=== PATIENT | female | born 1995 | race Hispanic/Latino ===

== ENCOUNTER 2017-10-02 21:27 | Emergency (ER) | payer SELFPAY ==
[~2017-10-02] VITALS: Ht 165.1 cm; Wt 118.2 kg
[~2017-10-02 21:27] MED LIST: CEPHALEXIN500 MG OR; LORTAB 5 OR; NO HOME MEDS; ULTRAM50 M1 PO
[2017-10-02 22:18] LABS: HEMATOCRIT 42.6 % (37.0-47.0); HEMOGLOBIN 15.2 g/dl (12.0-16.0); IMMATURE GRANULOCYTES 0.3 % (0.0-5.0); MEAN CELL VOLUME 88.9 fL CALC (80.0-100.0); MEAN CORPUSCULAR HGB 31.7 pG CALC (26.0-32.0); MEAN CORPUSCULAR HGB CONC 35.7 g/L CALC (32.0-36.0); NEUT# 6.97 thou/uL (2.00-7.15); RED BLOOD COUNT 4.79 mill/uL (4.20-5.60); RED CELL DISTRI WIDTH 11.8 % (11.5-15.5)
[2017-10-02 22:21] LABS: URINE BILIRUBIN - DIPSTICK NEGATIVE (NEGATIVE); URINE BLOOD DIPSTICK NEGATIVE (NEGATIVE); URINE COLOR YELLOW; URINE GLUCOSE - DIPSTICK NEGATIVE (NEGATIVE); URINE KETONE NEGATIVE (NEGATIVE); URINE LEUK ESTERASE MODERATE (NEGATIVE); URINE NITRITE - DIPSTICK NEGATIVE (Negative); URINE PH 5.5 (4.5-8.0); URINE PROTEIN - DIPSTICK NEGATIVE (NEG-TRACE); URINE SPECIFIC GRAVITY 1.025; URINE UROBILINOGEN - DIPSTICK 0.2 E.U./dL (0.2)
[2017-10-02 22:22] LABS: URINE CLARITY HAZY
[2017-10-02 22:24] LABS: BARBITURATES NEGATIVE (NEGATIVE); COCAINE NEGATIVE (NEGATIVE); METHADONE NEGATIVE (NEGATIVE); OXCYCODONE NEGATIVE (NEGATIVE); TETRAHYDROCANNABIONOL NEGATIVE (NEGATIVE); TRICYLIC ANTIDEPRESSANTS NEGATIVE (NEGATIVE)
[2017-10-02 22:27] LABS: URINE BACTERIA RARE hpf; URINE SQUAMOUS EPITHELIAL CELL FEW EPI/hpf (0-FEW)
[2017-10-02 22:32] LABS: ALBUMIN 4.4 g/dL (3.2-5.0); ALKALINE PHOSPHATASE 100 u/l (38-126); ANION GAP 16 (6-22 (CALC)); BILIRUBIN, TOTAL 0.4 mg/dL (0.0-1.4); BUN 10 mg/dL (7-17); BUN/CREATININE RATIO 14 (12-20 (CALC)); CARBON DIOXIDE 23 mmol/l (22-30); CHLORIDE 109 mmol/l (95-108); CREATININE 0.7 mg/dL (0.5-1.0); GFR > 60 ML/MIN (>=60 (CALC)); GFR FOR AFR.AMER. > 60 ML/MIN (>=60 (CALC)); POTASSIUM 4.3 mmol/l (3.5-5.1); SGPT/ALT 72 u/l (9-52); SODIUM 144 mmol/l (137-146); TOTAL PROTEIN 7.7 g/dL (6.3-8.2)
[2017-10-02 22:46] LABS: SGOT/AST 37 u/l (14-36)
[2017-10-02 23:08] VITALS: BP 120/68
== END 2017-10-02 23:10 | disposition home or self-care (01) | DRG 149 ==
LOC: ED 21:27
PROVIDERS: Emergency Medicine
DX: R42 Dizziness and giddiness (principal)

== ENCOUNTER 2017-12-21 00:15 | Emergency (ER) | payer SELFPAY ==
[~2017-12-21] VITALS: Ht 165.1 cm; Wt 118.0 kg
[2017-12-21 02:30] VITALS: BP 140/94
== END 2017-12-21 02:31 | disposition home or self-care (01) | DRG 761 ==
LOC: ED 00:15
DX: N93.9 Abnormal uterine and vaginal bleeding, unspecified (principal); R50.9 Fever, unspecified

== ENCOUNTER 2019-09-07 01:48 | Observation (INO) | payer SELFPAY ==
[~2019-09-07] VITALS: Ht 165.1 cm; Wt 122.7 kg
[2019-09-07] VITALS (8 sets, daily range): BP systolic 97–121; BP diastolic 49–73
[2019-09-07 02:54] LABS: HEMATOCRIT 42.6 % (37.0-47.0); HEMOGLOBIN 14.8 g/dl (12.0-16.0); IMMATURE GRANULOCYTES 0.3 % (0.0-5.0); MEAN CELL VOLUME 89.3 fL CALC (80.0-100.0); MEAN CORPUSCULAR HGB CONC 34.7 g/dL CAL (32.0-36.0); NEUT# 19.79 thou/uL (2.00-7.15); RED BLOOD COUNT 4.77 mill/uL (4.20-5.60); RED CELL DISTRI WIDTH 11.9 % (11.5-15.5)
[2019-09-07 02:56] LABS: URINE BILIRUBIN - DIPSTICK NEGATIVE (NEGATIVE); URINE BLOOD DIPSTICK NEGATIVE (NEGATIVE); URINE COLOR YELLOW; URINE GLUCOSE - DIPSTICK NEGATIVE (NEGATIVE); URINE KETONE 40 mg/dL (NEGATIVE); URINE LEUK ESTERASE TRACE (NEGATIVE); URINE NITRITE - DIPSTICK NEGATIVE (Negative); URINE PROTEIN - DIPSTICK 30 mg/dL (NEG-TRACE); URINE SPECIFIC GRAVITY >=1.030; URINE UROBILINOGEN - DIPSTICK 0.2 E.U./dL (0.2)
[2019-09-07 03:17] LABS: ALBUMIN 4.7 g/dL (3.2-5.0); ALKALINE PHOSPHATASE 99 u/l (38-126); AMYLASE 58 u/l (30-110); ANION GAP 15 (6-22 (CALC)); BILIRUBIN, TOTAL 0.7 mg/dL (0.0-1.4); BUN 9 mg/dL (7-17); BUN/CREATININE RATIO 16 (12-20 (CALC)); CARBON DIOXIDE 24 mmol/l (22-30); CHLORIDE 102 mmol/l (95-108); CREATININE 0.6 mg/dL (0.5-1.0); GFR > 60 ML/MIN (>=60 (CALC)); GFR FOR AFR.AMER. > 60 ML/MIN (>=60 (CALC)); LIPASE 103 u/l (23-300); POTASSIUM 4.1 mmol/l (3.5-5.1); SGOT/AST 36 u/l (14-36); SODIUM 138 mmol/l (137-146); TOTAL PROTEIN 7.9 g/dL (6.3-8.2)
[2019-09-07 03:21] LABS: URINE RBC 0-2 RBC/hpf (0-5); URINE SQUAMOUS EPITHELIAL CELL FEW EPI/hpf (0-FEW)
[2019-09-07 03:22] LABS: URINE BACTERIA FEW hpf
== END 2019-09-07 16:45 | disposition home or self-care (01) | DRG 343 ==
LOC: ED 01:48 → ED-I 06:55 → ED 07:03 → ED-I 07:04 → MS2 07:04
PROVIDERS: Family Medicine; ADMIT Surgery; ATTEND Surgery
PROC: 0DTJ4ZZ Resection of Appendix, Percutaneous Endoscopic Approach (ICD-10-PCS; principal; 2019-09-07)
DX: K35.30 Acute appendicitis with localized peritonitis, without perforation or gangrene (principal); N83.201 Unspecified ovarian cyst, right side; F17.210 Nicotine dependence, cigarettes, uncomplicated; R82.71 Bacteriuria; Z20.828 Contact with and (suspected) exposure to other viral communicable diseases
CPT/HCPCS: C9290; J0131; J1100; Q9967

== ENCOUNTER 2020-08-28 16:16 | Emergency (ER) | payer SELFPAY ==
[~2020-08-28] VITALS: Ht 165.1 cm; Wt 118.0 kg
[2020-08-28 17:26] LABS: URINE BILIRUBIN - DIPSTICK NEGATIVE (NEGATIVE); URINE BLOOD DIPSTICK NEGATIVE (NEGATIVE); URINE COLOR YELLOW; URINE GLUCOSE - DIPSTICK NEGATIVE (NEGATIVE); URINE KETONE TRACE mg/dL (NEGATIVE); URINE LEUK ESTERASE SMALL (NEGATIVE); URINE NITRITE - DIPSTICK NEGATIVE (Negative); URINE PH 5.5 (4.5-8.0); URINE PROTEIN - DIPSTICK NEGATIVE (NEG-TRACE); URINE SPECIFIC GRAVITY >=1.030
[2020-08-28 17:36] LABS: URINE SQUAMOUS EPITHELIAL CELL MODERATE EPI/hpf (0-FEW)
[2020-08-28] MEDS ORDERED: PROBIOTIC FORMU1 CAP PO (18:12)
[2020-08-28] MEDS ORDERED: DOXYCYCLINE100 MG PO (18:12)
[2020-08-28 18:32] VITALS: BP 130/81
== END 2020-08-28 18:20 | disposition home or self-care (01) | DRG 760 ==
LOC: ED 16:16
DX: N89.8 Other specified noninflammatory disorders of vagina (principal); N39.0 Urinary tract infection, site not specified; B96.20 Unspecified Escherichia coli [E. coli] as the cause of diseases classified elsewhere; F17.210 Nicotine dependence, cigarettes, uncomplicated; Z20.2 Contact with and (suspected) exposure to infections with a predominantly sexual mode of transmission

== ENCOUNTER 2021-01-20 18:56 | Inpatient (IN) | payer SELFPAY ==
[~2021-01-20] VITALS: Ht 165.1 cm; Wt 121.0 kg
[~2021-01-20 18:56] MED LIST changes: +DOXYCYCLINE100 MG PO; +PROBIOTIC FORMU1 CAP PO
--- NOTE | 2021-01-20 19:40 | NUR ---
TO ROOM VIA W/C. TRIAGED AT BEDSIDE.
[2021-01-20 20:31] LABS: URINE BLOOD DIPSTICK LARGE (NEGATIVE); URINE GLUCOSE - DIPSTICK 100 mg/dL (NEGATIVE); URINE KETONE TRACE mg/dL (NEGATIVE); URINE LEUK ESTERASE TRACE (NEGATIVE); URINE PH 5.5 (4.5-8.0); URINE PROTEIN - DIPSTICK 100 mg/dL (NEG-TRACE); URINE SPECIFIC GRAVITY 1.025; URINE UROBILINOGEN - DIPSTICK >=8.0 E.U./dL (0.2)
[2021-01-20 20:34] LABS: URINE BILIRUBIN - DIPSTICK NEGATIVE (NEGATIVE); URINE COLOR AMBER; URINE NITRITE - DIPSTICK NEGATIVE (Negative)
[2021-01-20 20:38] LABS: URINE SQUAMOUS EPITHELIAL CELL MODERATE EPI/hpf (0-FEW); URINE WBC 20-50 WBC/hpf (0-5)
--- NOTE | 2021-01-20 20:40 | NUR ---
PT RESTING ON ED BED, LABS OBTAINED BY ENERGY SALES BROKER. PT STABLE.
[2021-01-20 20:49] LABS: HEMOGLOBIN 13.2 g/dl (12.0-16.0); MEAN CELL VOLUME 88.8 fL CALC (80.0-100.0); MEAN CORPUSCULAR HGB 32.3 pG CALC (26.0-32.0); MEAN CORPUSCULAR HGB CONC 36.4 g/dL CAL (32.0-36.0); PLATELET COUNT 323 thou/uL (130-400); RED BLOOD COUNT 4.09 mill/uL (4.20-5.60)
[2021-01-20 20:55] LABS: HEMATOCRIT 36.3 % (37.0-47.0); IMMATURE GRANULOCYTES 6.8 % (0.0-5.0)
[2021-01-20 20:56] LABS: MANUAL DIFFERENTIAL YES
--- NOTE | 2021-01-20 21:00 | NUR ---
PT'S IV STARTED ON SECOND ATTEMPT, PT TOLERATED WELL. PT RATES PAIN AT 9/10. PT'S BP RUNNING LOW, PT LYING SUPINE. WILL CONTINUE TO MONITOR.
[2021-01-20 21:05] LABS: TOTAL PROTEIN 6.6 g/dL (6.3-8.2)
[2021-01-20 21:07] LABS: BAND 25 % (0-8)
[2021-01-20 21:10] LABS: BILIRUBIN, TOTAL 2.4 mg/dL (0.0-1.4); CREATININE 4.9 mg/dL (0.5-1.0); POTASSIUM 2.9 mmol/l (3.5-5.1)
--- NOTE | 2021-01-20 22:00 | NUR ---
PT EDUCATED ON ORAL CONTRAST. PT REPORTS DOING BEFORE AND HAS KNOWLEDGE OF PROCESS. PT'S BP IMPROVED AND PAIN BETTER.
--- NOTE | 2021-01-20 22:10 | NUR ---
REPORT GIVEN TO RASTA MERCER FOR TRANSITION OF CARE.
--- NOTE | 2021-01-20 23:17 | NUR ---
PT RESTING. NO C/O. FINISHED PO CONTRAST. IV FLUIDS UP.
[2021-01-21] VITALS (16 sets, daily range): BP systolic 74–125; BP diastolic 36–58
--- NOTE | 2021-01-21 02:20 | NUR ---
TELEPHONE REPORT RECEIVED FROM Courtney RAINEY RN IN ED. ICU#6 PREPARED TO RECEIVE PATIENT.
--- NOTE | 2021-01-21 02:23 | NUR ---
PT RESTING. FEELING BETTER. REPORT TO RASTA ZHOU/ICU.
--- NOTE | 2021-01-21 02:37 | NUR ---
ADMISSION VALUABLES LIST COMPLETED. PT RESTING. DRINKING JUICE.
--- NOTE | 2021-01-21 03:03 | NUR ---
PT ARRIVES TO UNIT VIA WC, ACCOMPANIED BY Courtney RAINEY RN. AMBULATORY TO BATHROOM AND THEN TO BED WITHOUT DIFFICULTY. GAIT BALANCED AND STEADY.
--- NOTE | 2021-01-21 04:00 | NUR ---
PT TO FLOOR VIA W/C WITH VALUABLES.
--- NOTE | 2021-01-21 04:00 | NUR ---
PRN MORPHINE AND PHENERGAN ADMINISTERED FOR C/O ABD PAIN 09/14 AND NASUEA. SEE E-APR.
--- NOTE | 2021-01-21 04:26 | NUR ---
PT LAYING IN BED PRONE. EYES CLOSED. RESPIRATIONS REGULAR AND UNLABORED. APPEARS TO BE SLEEPING COMFORTABLY. CALL MEAD REMAINS WITHIN REACH.
--- NOTE | 2021-01-21 05:12 | NUR ---
Franca MILLER SUPERVISOR SHIPPING IN ROOM COLLECTING AM LABS.
[2021-01-21 05:35] LABS: HEMOGLOBIN 11.7 g/dl (12.0-16.0); MEAN CELL VOLUME 92.6 fL CALC (80.0-100.0); MEAN CORPUSCULAR HGB 31.9 pG CALC (26.0-32.0); MEAN CORPUSCULAR HGB CONC 34.4 g/dL CAL (32.0-36.0); NEUT# 22.45 thou/uL (2.00-7.15); RED BLOOD COUNT 3.67 mill/uL (4.20-5.60); RED CELL DISTRI WIDTH 13.7 % (11.5-15.5)
[2021-01-21 06:05] LABS: CREATININE 4.3 mg/dL (0.5-1.0); POTASSIUM 2.9 mmol/l (3.5-5.1)
[2021-01-21 06:33] LABS: IMMATURE GRANULOCYTES 8.4 % (0.0-5.0)
--- NOTE | 2021-01-21 07:03 | NUR ---
Dr Lozano present at bedside to assess pt and discuss plan of care
--- NOTE | 2021-01-21 07:10 | NUR ---
pt awake in bed; no apparent distress noted; assessment completed at this time; pt alert and oriented; admits to sharp abd pain to ruq and bilat lower quads rating 7/10; will medicate; admits to feeling much better; no n/v noted at this time; resp even and unlabored; lungs clear bilat; skin color wnl; ra; hr reg; strong pulses; no edema noted; abd soft/tender with bs present; no bm noted per bid writer; pt admits to voiding without pain or burning; no urine to inspect at this time; #20 patent to rac with ivf infusing without complication; no redness or edema noted at site; plan of care/ diet explained; US of abd pending; meds explained; call light within reach; will continue to monitor
--- NOTE | 2021-01-21 08:00 | NUR ---
awake in bed; medicated as per orders for pain and nausea; data power consultant applied d/t k-rider infusion; st on monitor; will continue to monitor
--- NOTE | 2021-01-21 08:35 | NUR ---
Dr Samayoa present at bedside to assess pt and discuss plan of care
[2021-01-21 08:39] LABS: ALBUMIN 2.4 g/dL (3.2-5.0); BILIRUBIN, TOTAL 2.2 mg/dL (0.0-1.4); DIRECT BILIRUBIN 0.6 mg/dl (0.0-0.3); TOTAL PROTEIN 5.6 g/dL (6.3-8.2)
--- NOTE | 2021-01-21 09:45 | NUR ---
pt transferred to US via wc accompanied by this automotive service writer in stable in condition
--- NOTE | 2021-01-21 10:24 | NUR ---
pt returned to unit via wc accompanied by volunteer in stable condition; pt with diarrhea while in US; pt cleansed self; another episode of diarrhea while on unint; iv flushed and patent; fluids continued; monitor worker reapplied; will continue to monitor
--- NOTE | 2021-01-21 10:58 | NUR ---
SANCHO Wilson called per this gag writer; clear liq diet to be order; SANCHO made aware of o2 sat low 80s; pt receiving morphine; o2 to be placed
--- NOTE | 2021-01-21 12:21 | NUR ---
awake in bed; offers no complaints; iv intact and patent; o2 per nc; st on monitor; call light within reach; will continue to monitor
--- NOTE | 2021-01-21 14:03 | NUR ---
awake in bed; offers no complaints; iv intact sr on monitor; call light within reach; will continue to monitor
--- NOTE | 2021-01-21 16:15 | NUR ---
up to bathroom per self; iv intact and patent; no distress noted; will continue to monitor
--- NOTE | 2021-01-21 17:15 | NUR ---
Dr Samayoa informed per this story writer of hypotension; BP 76/36; orders received and place on chart
--- NOTE | 2021-01-21 18:05 | NUR ---
awake in bed; offers no complaints; iv intact and patent; fluid bolus infusing without complication; pt remains asymtomatic in regards to hypotension; st on monitor; call light within reach
--- NOTE | 2021-01-21 18:55 | NUR ---
Dr Paulson called this hand sign writer; update provided on hypotension
--- NOTE | 2021-01-21 19:00 | NUR ---
BEDSIDE REPORT RECEIVED FROM ROSINA MAGDALENO. CARE OF PT ASSUMED AT THIS TIME. PT DENIES NEEDS CURRENTLY. CALL MEAD WITHIN REACH, AGREES TO CALL PRN.
--- NOTE | 2021-01-21 19:10 | NUR ---
R-AC 20G LEAKING, REMOVED AND DRESSED BY Jackie DELUCA RN. CATH INTACT. SITE BENIGN. NEW IV TO R-FA 22G X1 ATTEMPT INITIATED. POSITIVE BLOOD RETURN. FLUSHES EASILY.
[2021-01-22] VITALS (19 sets, daily range): BP systolic 90–117; BP diastolic 42–64
[2021-01-22 05:59] LABS: HEMATOCRIT 34.2 % (37.0-47.0); IMMATURE GRANULOCYTES 4.9 % (0.0-5.0); MEAN CELL VOLUME 91.7 fL CALC (80.0-100.0); MEAN CORPUSCULAR HGB 32.2 pG CALC (26.0-32.0); MEAN CORPUSCULAR HGB CONC 35.1 g/dL CAL (32.0-36.0); PLATELET COUNT 329 thou/uL (130-400); RED BLOOD COUNT 3.73 mill/uL (4.20-5.60); RED CELL DISTRI WIDTH 14.1 % (11.5-15.5)
[2021-01-22 06:13] LABS: POTASSIUM 3.3 mmol/l (3.5-5.1)
[2021-01-22 06:15] LABS: CREATININE 2.4 mg/dL (0.5-1.0)
[2021-01-22 06:23] LABS: MANUAL DIFFERENTIAL YES
[2021-01-22 06:46] LABS: BAND 3 % (0-8)
--- NOTE | 2021-01-22 07:20 | NUR ---
pt awake in bed; no apparent distress noted; assessment completed at this time; pt alert and oriented; admits to abd pain radiating to back rating 9/10; denies n/v; will medicate; resp even and unlabored; lungs clear bilat; skin color wnl; o2 per nc at 2L; o2 sat 91%; hr reg; strong pulses; no edema noted; st on monitor; abd soft with bs present; pt admits to bm, dark brown diarrhea noted in toilet; pt admits to voiding without pain or burning; urine mixed with stool; #22 patent to rfa with ivf infusing without complication; no redness or edema noted at site; plan of care/ meds explained; call light within reach; will continue to monitor
--- NOTE | 2021-01-22 08:01 | NUR ---
resting in bed on left side with eyes closed; no apparent distress noted; st on monitor; iv intact and patent; call light within reach; will continue to monitor
--- NOTE | 2021-01-22 09:00 | NUR ---
Dr Paulson present at bedside to assess pt and discuss plan of care
--- NOTE | 2021-01-22 09:33 | NUR ---
xray present at bedside
--- NOTE | 2021-01-22 09:50 | NUR ---
lab present at bedside
--- NOTE | 2021-01-22 10:20 | NUR ---
resting in bed; st on monitor; o2 per nc; offers no complaints; poc explained; call light within reach; will continue to monitor
--- NOTE | 2021-01-22 11:00 | NUR ---
Dr Paulson informed of lactic acid and xray results; orders received to continue with liter bolus; will continue to monitor
--- NOTE | 2021-01-22 12:00 | NUR ---
Dr Lozano present at bedside to assess pt and discuss plan of care/ need for cholecystectomy today; pt agree with surgery; MD informed of last clear liq intake at approx 1000; pt st on monitor; iv intact and patent; call light within reach; will continue to monitor
--- NOTE | 2021-01-22 13:05 | NUR ---
PT IS 25 YOF WHO PRESENTS WITH SEPSIS. ALL MEDS HAVE BEEN REVIEWED. T = 98.2 F, WBC = 37.1 THOUS/UL, SCR = 2.4 MG/DL, CRCL = 46.7 ML/MIN VANCOMYCIN ORDERED FOR PHARMACY TO DOSE. START VANCOMYCIN 500MG IV Q12H @ 1230. DRAW TROUGH 30 MIN PRIOR TO 4TH DOSE ON 12 @ 0000. GOAL TROUGH IS 15-20 MCG/ML. PHARMACY WILL CONTINUE TO FOLLOW.
--- NOTE | 2021-01-22 13:10 | NUR ---
pt transferred to OR with Bhumika in stable condition
--- NOTE | 2021-01-22 16:15 | NUR ---
pt received back from ORT via bed accompanied by Bhumika RN and Tiki RN; pt in stable condition; focus assessment completed; pt fully awake and oriented; denies pain at current; no n/v noted; resp even and unlabored; lungs clear; o2 per nc at 4L; hr reg; st on monitor; bilat scds placed; abd tender with bs absent; ngt present to right nare, connected to LIS; #20 rh patent with ivf infusing without complication; no redness or edema noted at site; abd dressing cdi; no bleeding/shadowing to drsg noted; CARLOS intact to ruq with bloody drainage to bulb suction; abd binder secured; pt assist to bsc; voided 350cc dk yellow urine without complication; few ice chips provided; call light within reach; will continue to monitor
--- NOTE | 2021-01-22 18:17 | NUR ---
awake in bed; offers no complaints; denies pain; st on monitor; iv intact and patent; ice chips provided; call light within reach;
--- NOTE | 2021-01-22 18:55 | NUR ---
IS provided; pt educated on use per RT;
--- NOTE | 2021-01-22 19:00 | NUR ---
BEDSIDE REPORT RECEIVED FROM ROSINA MAGDALENO. CARE OF PT ASSUMED AT THIS TIME. PT DENIES NEEDS CURRENTLY. CALL MEAD WITHIN REACH, AGREES TO CALL PRN.
--- NOTE | 2021-01-22 19:13 | NUR ---
NGT OUT, PT DECLINES RE-INSERTION. RISKS DISCUSSED AT LENGTH. PT VERBALIZES UNDERSTANDING AND CONTINUES TO DECLINE. DR. COLBERT MADE AWARE. NO FURTHER ORDERS RECEIVED AT THIS TIME.
--- NOTE | 2021-01-22 19:45 | NUR ---
DR. DURON MADE AWARE OF NGT OUT/PT'S REFUSAL FOR RE-INSERTION. ORDER FOR NON-OPIATE ALTERNATIVE ANALGESIC OPTION OBTAINED AT THIS TIME.
[2021-01-23] VITALS (17 sets, daily range): BP systolic 89–155; BP diastolic 45–88
--- NOTE | 2021-01-23 03:03 | NUR ---
120ML SANGUINOUS OUTPUT WITH SOME CLOTS DRAINED FROM CARLOS. BULB SUCTION RE-ENGAGED.
--- NOTE | 2021-01-23 04:34 | NUR ---
Franca MILLER FOOD SCIENCE TECHNICIAN IN ROOM COLLECTING LABS.
--- NOTE | 2021-01-23 05:05 | NUR ---
50ML SANGUINOUS OUTPUT WITH SOME CLOTS DRAINED FROM CARLOS. BULB SUCTION RE-ENGAGED. 600ML IMELDA URINE MIXED WITH LIQUID STOOL EMPTIED FROM BSC. PT TOLERATING ICE CHIPS AND REQUESTING DIET BE ADVANCED TO LIQUIDS THIS AM.
[2021-01-23 05:14] LABS: HEMATOCRIT 31.1 % (37.0-47.0); HEMOGLOBIN 10.2 g/dl (12.0-16.0); IMMATURE GRANULOCYTES 5.7 % (0.0-5.0); MEAN CORPUSCULAR HGB 32.1 pG CALC (26.0-32.0); MEAN CORPUSCULAR HGB CONC 32.8 g/dL CAL (32.0-36.0); NEUT# 21.47 thou/uL (2.00-7.15); RED BLOOD COUNT 3.18 mill/uL (4.20-5.60); RED CELL DISTRI WIDTH 15.3 % (11.5-15.5)
[2021-01-23 05:27] LABS: ANION GAP 13 (6-22 (CALC)); BUN 27 mg/dL (7-17); BUN/CREATININE RATIO 23 (12-20 (CALC)); CARBON DIOXIDE 19 mmol/l (22-30); CHLORIDE 111 mmol/l (95-108); GFR 55 ML/MIN (>=60 (CALC)); POTASSIUM 3.6 mmol/l (3.5-5.1); SODIUM 140 mmol/l (137-146)
[2021-01-23 05:28] LABS: CREATININE 1.2 mg/dL (0.5-1.0); GFR FOR AFR.AMER. > 60 ML/MIN (>=60 (CALC))
[2021-01-23 05:38] LABS: MEAN CELL VOLUME 97.8 fL CALC (80.0-100.0)
--- NOTE | 2021-01-23 07:20 | NUR ---
pt awake in bed; no apparent distress noted; assessment completed at this time; pt alert and oriented; offers complaints of pain; will medicate; denies n/v; resp even and unlabored; lungs clear; skin color wnl; o2 per nc at 2L; dry cough noted; IS present at bedside; pt able to pull 1000ml; IS encouraged q1 hr x10 resp while aware; hr reg; strong pulses; no edema noted; sr/st on monitor; abd distended/obese; bs present to llq; small liquid brown bm noted to bsc; no urine to inspect at this time; #20 patent to rh, ivf infusing without complication; no redness or edema noted at site; pt remains npo, ice chips provided; abd dressing cdi, scant dry shadowing noted to distal dressing; CARLOS to aide intact with bloody drainage to bulb suction; abd binder intact; pt up to recliner; tolerated activity well; call light within reach; will continue to monitor
--- NOTE | 2021-01-23 08:01 | NUR ---
resting in recliner with eyes closed; no apparent distress noted; o2 per nc; sr on monitor; call light within reach; will continue to monitor
--- NOTE | 2021-01-23 09:55 | NUR ---
awake in recliner; offers no complaints; no apparent distress noted; po fluids provided and tolerated well; iv intact and patent; sr on monitor; call light within reach; will continue to monitor
--- NOTE | 2021-01-23 10:09 | NUR ---
visitor present at bedside
--- NOTE | 2021-01-23 10:35 | NUR ---
pt with complaints of pain to right abd rating 7/10, sharp; will medicate; pt requesting back to bed; iv intact; st on monitor; o2 intact; iv patent; will continue to monitor
--- NOTE | 2021-01-23 12:00 | NUR ---
awake sitting on the side of the bed eating lunch; no apparent distress noted; iv intact and patent; sr/st on monitor; o2 per nc; IS at bedside and pt encouraged to use q 1hr; will continue to monitor
--- NOTE | 2021-01-23 12:10 | NUR ---
Dr Lozano called this narrative writer; updated on pt status/vs/noé outpt; no needs required from this nurse or pt at this time; pt tolerating diet; will continue to monitor
--- NOTE | 2021-01-23 14:13 | NUR ---
awake in bed; offers no complaints; st on monitor; will continue to monitor
--- NOTE | 2021-01-23 15:59 | NUR ---
awake in bed; up to recliner per self; pt admits to abd pain; will be medicated as per request; sr on monitor; o2 per nc; iv intact and patent; noé emptied; call light within reach; will continue to monitor
--- NOTE | 2021-01-23 18:07 | NUR ---
awake in recliner eating dinner; offers no complaints; iv intact and patent; o2 per nc; call light within reach
--- NOTE | 2021-01-23 18:45 | NUR ---
BEDSIDE REPORT RECEIVED FROM Jackie DELUCA RN, CARE OF PT ASSUMED AT THIS TIME.
[2021-01-24] VITALS (9 sets, daily range): BP systolic 103–139; BP diastolic 53–76
--- NOTE | 2021-01-24 04:15 | NUR ---
Franca MILLER PATROL INSPECTOR IN ROOM COLLECTING LABS.
[2021-01-24 04:23] LABS: HEMATOCRIT 31.8 % (37.0-47.0); HEMOGLOBIN 10.4 g/dl (12.0-16.0); MEAN CELL VOLUME 97.8 fL CALC (80.0-100.0); MEAN CORPUSCULAR HGB CONC 32.7 g/dL CAL (32.0-36.0); NEUT# 14.18 thou/uL (2.00-7.15); RED BLOOD COUNT 3.25 mill/uL (4.20-5.60)
--- NOTE | 2021-01-24 04:28 | NUR ---
PT REQUESTS BED BE MOVED CLOSER TO WALL OUTLET SO HER PHONE COOK STARCH COULD REACH, BED MOVED REQUESTED. WATER BOTTLE PROVIDED REQUESTED. PT STATES SHE IS HAVING INDIGESTION/ACID REFLUX. STATES "I THINK ALL THAT ORANGE JUICE IS FINALLY CATCHING UP TO ME." PT THEN WHISPERS "DID YOU HEAR THAT?", WHEN QUESTIONED STATES SHE HEARS SOMEONE OUTSIDE HER ROOM "HAVING SEX". PT REASSURED THEIR ARE NO OTHER PATIENTS AROUND HER ROOM AND NO ONE ELSE IN ICU BUT PATIENT AND NURSES.
[2021-01-24 04:29] LABS: IMMATURE GRANULOCYTES 11.7 % (0.0-5.0)
[2021-01-24 04:54] LABS: ALBUMIN 2.1 g/dL (3.2-5.0); ALKALINE PHOSPHATASE 249 u/l (38-126); ANION GAP 11 (6-22 (CALC)); BUN 20 mg/dL (7-17); BUN/CREATININE RATIO 20 (12-20 (CALC)); CARBON DIOXIDE 19 mmol/l (22-30); CHLORIDE 110 mmol/l (95-108); GFR > 60 ML/MIN (>=60 (CALC)); GFR FOR AFR.AMER. > 60 ML/MIN (>=60 (CALC)); POTASSIUM 4.1 mmol/l (3.5-5.1); SGOT/AST 45 u/l (14-36); SODIUM 136 mmol/l (137-146); TOTAL PROTEIN 5.5 g/dL (6.3-8.2)
[2021-01-24 04:56] LABS: BILIRUBIN, TOTAL 1.1 mg/dL (0.0-1.4)
--- NOTE | 2021-01-24 05:40 | NUR ---
60ML SANGUINOUS OUTPUT WITH SOME CLOTS DRAINED FROM CARLOS. BULB SUCTION RE-ENGAGED. 200ML IMELDA URINE MIXED WITH LIQUID STOOL EMPTIED FROM BSC. PT DENIES FURTHER NEEDS AT THIS TIME. CALL MEAD REMAINS WITHIN REACH,AGREES TO CALL PRN.
--- NOTE | 2021-01-24 07:25 | NUR ---
RESTING IN BED CHEST RISING AND FALLING.
--- NOTE | 2021-01-24 09:37 | NUR ---
DR STRICKLAND IN ROUNDING ON PT.
--- NOTE | 2021-01-24 09:44 | NUR ---
DR MARCIAL IN ROUNDING ON PT.
--- NOTE | 2021-01-24 15:24 | NUR ---
RESTING IN BED. NO S/S OF DISTRESS NOTED.
--- NOTE | 2021-01-24 19:00 | NUR ---
BEDSIDE REPORT RECEIVED FROM Franca HUFF RN, CARE OF PT ASSUMED AT THIS TIME.
--- NOTE | 2021-01-24 19:24 | NUR ---
100ML SANGUINOUS OUTPUT WITH SOME CLOTS DRAINED FROM CARLOS. BULB SUCTION RE-ENGAGED. CARLOS DRAIN SECURE, UNKINKED, AND UNOBSTRUCTED.
--- NOTE | 2021-01-24 19:39 | NUR ---
TELEPHONE REPORT GIVEN TO Franca SLOAN RN.
--- NOTE | 2021-01-24 19:45 | NUR ---
REPORT RECEIVED FROM Francis CÁRDENAS.
--- NOTE | 2021-01-24 19:54 | NUR ---
PT TRANSPORTED TO ROOM 276 VIA WC ACCOMPANIED BY THIS NURSE AND Chace TOUSSAINT CNA.
--- NOTE | 2021-01-24 20:00 | NUR ---
PT ARRIVED TO FLOOR VIA WHEELCHAIR ACCOMPANIED BY Francis CÁRDENAS
[2021-01-25 00:48] VITALS: BP 116/74
[2021-01-25 04:25] VITALS: BP 141/61
[2021-01-25 05:19] LABS: HEMATOCRIT 29.6 % (37.0-47.0); HEMOGLOBIN 9.7 g/dl (12.0-16.0); MEAN CORPUSCULAR HGB 32.1 pG CALC (26.0-32.0); MEAN CORPUSCULAR HGB CONC 32.8 g/dL CAL (32.0-36.0); RED BLOOD COUNT 3.02 mill/uL (4.20-5.60); RED CELL DISTRI WIDTH 14.3 % (11.5-15.5)
[2021-01-25 05:30] LABS: BUN 17 mg/dL (7-17); BUN/CREATININE RATIO 21 (12-20 (CALC)); CHLORIDE 106 mmol/l (95-108); CREATININE 0.8 mg/dL (0.5-1.0); GFR > 60 ML/MIN (>=60 (CALC)); GFR FOR AFR.AMER. > 60 ML/MIN (>=60 (CALC)); POTASSIUM 3.6 mmol/l (3.5-5.1); SODIUM 135 mmol/l (137-146)
[2021-01-25 05:37] LABS: ANION GAP 10 (6-22 (CALC)); CARBON DIOXIDE 23 mmol/l (22-30)
--- NOTE | 2021-01-25 06:02 | NUR ---
PT RESTING COMFORTABLY. IN NO APPARENT DISTRESS. CALL LIGHT AND BEDSIDE TABLE WITHIN REACH.
--- NOTE | 2021-01-25 06:12 | NUR ---
CRITICAL MAGNESIUM OF 1.O REPORTED TO DR WEBER ORDER RECEIVED FOR 4GM MG IV X 1.
[2021-01-25 08:00] VITALS: BP 129/73
--- NOTE | 2021-01-25 09:19 | NUR ---
PT SEEN AT REST IN THE BED, IS ALERT AND ORIENTED X 3. PT WAS MEDICATED FOR PAIN SHORT WHILE AGO, BUT SHE DOES NOT PRESENT IF IN GREAT PAIN. CARLOS NOTED. PT PROVIDED GATORADE SHE SAID THE ORANGE JUICE WAS UPSETTING HER STOMACH.
--- NOTE | 2021-01-25 14:03 | NUR ---
PT SEEN BE DR MARCIAL AND JORDANA THIS MORNING. DEBBI RAMON. CARLOS DRAINS WAS DISCONTINUED WITHOUT INCIDENT. ABDOMINAL DRESSING REMOVED, LEFT DOCUMENTATION MANAGER.
[2021-01-25 14:45] VITALS: BP 135/61
--- NOTE | 2021-01-25 18:06 | NUR ---
ABD PLACED OVER CARLOS SITE PER MODERATE DRAINAGE. PT WISHES THAT SHE STILL HAD DILAUDID FOR PAIN CONTROL. PT AMBULATORY TO BR WITHOUT A PROBLEM.
--- NOTE | 2021-01-25 18:50 | NUR ---
REPORT RECEIEVED FROM Dima DAVILA RN
[2021-01-25 19:00] VITALS: BP 137/75
--- NOTE | 2021-01-25 21:14 | NUR ---
PT COMPLAINING OF NAUSEA, STATES HE VOMITED IN HER WATER PITCHER. VISUALLY INSPECTED WATER PITCHER, NO VOMIT NOPTED ONLY SPIT.
--- NOTE | 2021-01-25 21:18 | NUR ---
PT REQUESTING SOMENTHING "HARDER" TO GET RID OF HER PAIN AND LET HER SLEEP. PT DOES NOT APPEAR TO BE IN ANY DISTRESS AT THIS TIME. INFORMED PT SHE COULD HAVE LORETAB, BUT DECLINES SHE WANTS DILAUDID. NOTIDFIED DR OF PT REQUEST. NO NEW ORDERS RECEIVED
[2021-01-26 04:00] VITALS: BP 147/65
[2021-01-26 05:29] LABS: HEMATOCRIT 30.4 % (37.0-47.0); MEAN CELL VOLUME 98.4 fL CALC (80.0-100.0); MEAN CORPUSCULAR HGB 32.4 pG CALC (26.0-32.0); MEAN CORPUSCULAR HGB CONC 32.9 g/dL CAL (32.0-36.0); RED BLOOD COUNT 3.09 mill/uL (4.20-5.60); RED CELL DISTRI WIDTH 13.6 % (11.5-15.5)
[2021-01-26 05:50] LABS: ANION GAP 11 (6-22 (CALC)); BUN 11 mg/dL (7-17); BUN/CREATININE RATIO 17 (12-20 (CALC)); CARBON DIOXIDE 23 mmol/l (22-30); CHLORIDE 103 mmol/l (95-108); CREATININE 0.6 mg/dL (0.5-1.0); GFR > 60 ML/MIN (>=60 (CALC)); GFR FOR AFR.AMER. > 60 ML/MIN (>=60 (CALC)); POTASSIUM 3.5 mmol/l (3.5-5.1); SODIUM 133 mmol/l (137-146)
[2021-01-26 05:53] LABS: MAGNESIUM 1.4 mg/dL (1.6-2.3)
--- NOTE | 2021-01-26 06:28 | NUR ---
PATIENT STATES HER IV "FELL OUT DURING THE NIGHT" PT DEOES NOT WANT TO BE STUCK AGAIN SHE STATES SHE WILL BE GOING HOME TONIGHT.DR MARCIAL NOTIFIED, PT HAS ANTIBIOTIC DUE AT THIS TIME BUT IS REFUSING. DR ORDONEZ
[2021-01-26 08:34] VITALS: BP 154/76
--- NOTE | 2021-01-26 10:34 | NUR ---
DR MARCIAL AND Dima MCKEE APRN AT BEDSIDE DISCUSSING POC
--- NOTE | 2021-01-26 10:43 | NUR ---
DRESSING CHANGE COMPLETED AT THIS TIME BY THIS COMMUNICATIONS TECH FROM CARLOS REMOVAL SITE; SHADOWING OF SEROSANGUINEOUS DRAINAGE NOTED. PT TOLERATED WELL. CALL LIGHT WITHIN REACH.
[2021-01-26] MEDS ORDERED: PERCOCET 5/321 COMBO PO (11:23)
[2021-01-26] MEDS ORDERED: ZOFRAN4 MG/TAB PO (11:26)
--- NOTE | 2021-01-26 12:12 | NUR ---
Discharge instructions given. Patient verbalizes understanding of same. Discharged in stable condition via Wheelchair to Home with staff. All belongings sent with pt along with pain medication prescription; copy placed on chart.
[2021-02-01] MEDS ORDERED: OMEPRAZOLE20 MG PO (12:23)
== END 2021-01-26 12:11 | disposition home or self-care (01) | DRG 854 ==
LOC: ED 18:56 → ED-I 01-21 01:10 → ED 01-21 01:23 → ICU 01-21 01:24 → MS2 01-24 19:45
PROVIDERS: Family Medicine; Hospitalist; Internal Medicine; Nurse Practitioner; Surgery; ADMIT Internal Medicine; ATTEND Internal Medicine
PROC: 0FT40ZZ Resection of Gallbladder, Open Approach (ICD-10-PCS; principal; 2021-01-22)
PROC: 0FJ44ZZ Inspection of Gallbladder, Percutaneous Endoscopic Approach (ICD-10-PCS; 2021-01-22)
DX: A41.9 Sepsis, unspecified organism (principal); K80.01 Calculus of gallbladder with acute cholecystitis with obstruction; N17.9 Acute kidney failure, unspecified; E87.2 Acidosis; R65.20 Severe sepsis without septic shock; E86.0 Dehydration; I95.9 Hypotension, unspecified; E87.6 Hypokalemia; N83.201 Unspecified ovarian cyst, right side; M54.9 Dorsalgia, unspecified; G89.29 Other chronic pain; F17.200 Nicotine dependence, unspecified, uncomplicated; Z20.822 Contact with and (suspected) exposure to COVID-19
CPT/HCPCS: J0131; J1610; J1650; J3475; Q9967

== ENCOUNTER 2021-02-03 10:06 | Emergency (ER) | payer SELFPAY ==
[~2021-02-03] VITALS: Ht 165.1 cm; Wt 117.2 kg
[~2021-02-03 10:06] MED LIST changes: +OMEPRAZOLE20 MG PO; +PERCOCET 5/321 COMBO PO; +ZOFRAN4 MG/TAB PO
[2021-02-03] MEDS ORDERED: PERCOCET 5/325M1 TAB PO (10:22)
[2021-02-03] MEDS ORDERED: ZOFRAN4 M1 PO (10:22)
[2021-02-03 11:14] LABS: HEMATOCRIT 33.8 % (37.0-47.0); HEMOGLOBIN 10.8 g/dl (12.0-16.0); MEAN CELL VOLUME 98.3 fL CALC (80.0-100.0); MEAN CORPUSCULAR HGB 31.4 pG CALC (26.0-32.0); NEUT# 9.89 thou/uL (2.00-7.15); RED BLOOD COUNT 3.44 mill/uL (4.20-5.60); RED CELL DISTRI WIDTH 14.3 % (11.5-15.5)
[2021-02-03 11:34] LABS: IMMATURE GRANULOCYTES 8.3 % (0.0-5.0)
[2021-02-03 11:41] LABS: BILIRUBIN, TOTAL 0.8 mg/dL (0.0-1.4); POTASSIUM 3.6 mmol/l (3.5-5.1); TOTAL PROTEIN 6.4 g/dL (6.3-8.2)
[2021-02-03 11:46] LABS: ALBUMIN 2.6 g/dL (3.2-5.0)
[2021-02-03 11:49] LABS: CREATININE 4.9 mg/dL (0.5-1.0)
[2021-02-03 16:19] VITALS: BP 94/53
[2021-02-03 16:22] LABS: URINE BILIRUBIN - DIPSTICK NEGATIVE (NEGATIVE); URINE BLOOD DIPSTICK MODERATE (NEGATIVE); URINE COLOR YELLOW; URINE GLUCOSE - DIPSTICK NEGATIVE (NEGATIVE); URINE KETONE TRACE mg/dL (NEGATIVE); URINE LEUK ESTERASE TRACE (NEGATIVE); URINE PH 5.5 (4.5-8.0); URINE PROTEIN - DIPSTICK 100 mg/dL (NEG-TRACE); URINE UROBILINOGEN - DIPSTICK 0.2 E.U./dL (0.2)
[2021-02-03 16:24] LABS: URINE NITRITE - DIPSTICK NEGATIVE (Negative)
[2021-02-03 16:31] LABS: URINE MUCUS FEW hpf (NONE-FEW); URINE SQUAMOUS EPITHELIAL CELL FEW EPI/hpf (0-FEW); URINE WBC 0-2 WBC/hpf (0-5)
--- NOTE | 2021-02-05 10:29 | NUR ---
Results of Blood cultures, 4/4 bottles growing Gram Positive cocci called to Emmett at [facility] ICU on 02/06/20 @ 0889 @ [phone].
== END 2021-02-03 16:33 | disposition short-term general hospital (02) | DRG 862 ==
LOC: ED 10:06
PROVIDERS: Family Medicine
PROC: 06HY33Z Insertion of Infusion Device into Lower Vein, Percutaneous Approach (ICD-10-PCS; principal; 2021-02-03)
DX: T81.43XA Infection following a procedure, organ and space surgical site, initial encounter (principal); K65.1 Peritoneal abscess; A41.9 Sepsis, unspecified organism; R65.21 Severe sepsis with septic shock; F17.200 Nicotine dependence, unspecified, uncomplicated; B95.0 Streptococcus, group A, as the cause of diseases classified elsewhere; Y83.6 Removal of other organ (partial) (total) as the cause of abnormal reaction of the patient, or of later complication, without mention of misadventure at the time of the procedure; Z90.49 Acquired absence of other specified parts of digestive tract; Z20.822 Contact with and (suspected) exposure to COVID-19

== ENCOUNTER 2021-04-18 10:06 | Observation (INO) | payer OTHER ==
[~2021-04-18] VITALS: Ht 165.1 cm; Wt 150.0 kg
[~2021-04-18 10:06] MED LIST changes: +PERCOCET 5/325M1 TAB PO; +ZOFRAN4 M1 PO
--- NOTE | 2021-04-18 10:06 | NUR ---
PT ARRIVES ALERT AND CONVERSIVE VIA EMS, NO TACHYPNEA. O2 SAT 96% ON RA
[2021-04-18] MEDS ORDERED: METOPROL TAR25 MG PO (10:27)
[2021-04-18] MEDS ORDERED: FAMOTIDINE20 M1 PO (10:28)
[2021-04-18] MEDS ORDERED: VIMPAT100 MG PO (10:28)
[2021-04-18] MEDS ORDERED: FLUOXETINE10 M2 PO (10:28)
[2021-04-18] MEDS ORDERED: ELIQUIS5 MG PO (10:29)
[2021-04-18 10:39] LABS: HEMATOCRIT 31.1 % (37.0-47.0); IMMATURE GRANULOCYTES 0.6 % (0.0-5.0); MEAN CELL VOLUME 94.5 fL CALC (80.0-100.0); MEAN CORPUSCULAR HGB 30.4 pG CALC (26.0-32.0); MEAN CORPUSCULAR HGB CONC 32.2 g/dL CAL (32.0-36.0); NEUT# 12.2 thou/uL (2.00-7.15); RED BLOOD COUNT 3.29 mill/uL (4.20-5.60); RED CELL DISTRI WIDTH 17.8 % (11.5-15.5)
[2021-04-18 10:53] LABS: D-DIMER 1.23 mg/L (0.19-0.60)
[2021-04-18 10:56] LABS: ACT PARTIAL THROMBO TIME 21.1 SECONDS (20.0-32.5); INTERNATIONAL NORMALIZED RATIO 1.1 RATIO (0.7-1.3)
[2021-04-18 11:08] LABS: URINE BILIRUBIN - DIPSTICK NEGATIVE (NEGATIVE); URINE BLOOD DIPSTICK LARGE (NEGATIVE); URINE COLOR YELLOW; URINE GLUCOSE - DIPSTICK NEGATIVE (NEGATIVE); URINE KETONE NEGATIVE (NEGATIVE); URINE LEUK ESTERASE NEGATIVE (NEGATIVE); URINE PH 7.5 (4.5-8.0); URINE PROTEIN - DIPSTICK 30 mg/dL (NEG-TRACE); URINE UROBILINOGEN - DIPSTICK 0.2 E.U./dL (0.2)
[2021-04-18 11:09] LABS: HCG SERUM/URINE (NEG/POS) NEGATIVE (NEGATIVE); URINE NITRITE - DIPSTICK NEGATIVE (Negative)
[2021-04-18 11:15] LABS: URINE RBC 25-50 RBC/hpf (0-5); URINE SQUAMOUS EPITHELIAL CELL FEW EPI/hpf (0-FEW); URINE WBC 0-2 WBC/hpf (0-5)
[2021-04-18 11:32] LABS: ALKALINE PHOSPHATASE 136 u/l (38-126); AMYLASE 92 u/l (30-110); BILIRUBIN, TOTAL 0.6 mg/dL (0.0-1.4); BUN 17 mg/dL (7-17); CHLORIDE 108 mmol/l (95-108); LIPASE 276 u/l (23-300); MAGNESIUM 1.7 mg/dL (1.6-2.3); SGOT/AST 59 u/l (14-36)
[2021-04-18 11:41] LABS: ALBUMIN 3.9 g/dL (3.2-5.0); ANION GAP 17 (6-22 (CALC)); BUN/CREATININE RATIO 24 (12-20 (CALC)); CARBON DIOXIDE 24 mmol/l (22-30); CREATININE 0.7 mg/dL (0.5-1.0); GFR > 60 ML/MIN (>=60 (CALC)); GFR FOR AFR.AMER. > 60 ML/MIN (>=60 (CALC)); POTASSIUM 2.6 mmol/l (3.5-5.1); SODIUM 146 mmol/l (137-146); TOTAL PROTEIN 7.8 g/dL (6.3-8.2)
[2021-04-18 14:32] VITALS: BP 181/99
--- NOTE | 2021-04-18 15:13 | NUR ---
REPORT RECIEVED FROM RASTA ROBERTS
--- NOTE | 2021-04-18 15:16 | NUR ---
REPORT CALLED TO [facility] FOR TRANSPORT TO ROOM 277 VIA WHEELCHAIR.
--- NOTE | 2021-04-18 15:23 | NUR ---
PT ARRIVED VIA WC WITH RASTA GAY. ORIENTATED PT TO ROOM. PT ABLE TO AMBULATE SELF TO BED. ASSESSMENT AND VITALS ALLOWED AT THIS TIME. BRUISING ON LEFT UPPER LEG. EDEMA ON LOWER FEET +2-3. THE LEFT LEG IS +3. PT STATES "THEY FEEL LIKE THEYRE BURINING." TELE MONITOR IN PLACE. CONTINOUS MONITORING PER ED. FALL/SAFTEY PRECAUTIONS IN PLACE. CALL LIGHT IS WITHIN REACH.
[2021-04-18 16:15] VITALS: BP 194/92
[2021-04-18 18:06] VITALS: BP 166/92
--- NOTE | 2021-04-18 18:32 | NUR ---
PT RESTING SEMI CHILDERS POSTION ON PHONE. IV 20G RAC SL FLUSHED WITH NO RESISTANCE. TELE MONITOR IN PLACE. STATES NO PAIN AT THIS TIME. FALL/SAFETY PRECAUTION IN PLACE. CALL LIGHT WITHIN REACH
[2021-04-18 20:09] VITALS: BP 140/74
--- NOTE | 2021-04-18 20:50 | NUR ---
RESTING IN BED VSS RESPIRATIONS EVEN AND UNLABORED. BLE EDEMA NOTED. ;EFT WORSE THAN RIGHT. NO NEEDS AT THIS TIME.
[2021-04-19 00:03] VITALS: BP 160/81
--- NOTE | 2021-04-19 00:46 | NUR ---
MEDICATED RO FOOT DISCOMFORT PER APR. VSS RESTING IN BED EYES CLOSED
--- NOTE | 2021-04-19 03:57 | NUR ---
PT DID NOT SLEEP OVERNIGHT. NO EVENTS THIS SHIFT. VSS Q2 HR ROUNDING PERFORMED PER POLICY
[2021-04-19 04:19] VITALS: BP 164/85
[2021-04-19 05:49] LABS: HEMATOCRIT 29.2 % (37.0-47.0); HEMOGLOBIN 9.4 g/dl (12.0-16.0); MEAN CELL VOLUME 94.8 fL CALC (80.0-100.0); MEAN CORPUSCULAR HGB 30.5 pG CALC (26.0-32.0); MEAN CORPUSCULAR HGB CONC 32.2 g/dL CAL (32.0-36.0); RED BLOOD COUNT 3.08 mill/uL (4.20-5.60); RED CELL DISTRI WIDTH 17.7 % (11.5-15.5)
[2021-04-19 06:15] LABS: BUN 16 mg/dL (7-17); BUN/CREATININE RATIO 25 (12-20 (CALC)); CARBON DIOXIDE 27 mmol/l (22-30); CHLORIDE 104 mmol/l (95-108); CREATININE 0.6 mg/dL (0.5-1.0); GFR > 60 ML/MIN (>=60 (CALC)); GFR FOR AFR.AMER. > 60 ML/MIN (>=60 (CALC)); MAGNESIUM 1.7 mg/dL (1.6-2.3); SODIUM 144 mmol/l (137-146)
[2021-04-19 06:17] LABS: ANION GAP 16 (6-22 (CALC)); POTASSIUM 2.9 mmol/l (3.5-5.1)
--- NOTE | 2021-04-19 06:28 | NUR ---
DR MARCIAL NOTIFIED OF LACTIC ACID 2.3 NO NEW ORDERS RECEIVED
--- NOTE | 2021-04-19 08:00 | NUR ---
PT WATCHING TV UPON ENTERING ROOM. ASSESSMENT AND VITALS ALLOWED AT THIS TIME. 20G RAC SL FLUSHED WITH NO RESISTANCE. TELE MONITOR IN PLACE, CONTINOUS MONITORING PER ED. FALL/SAFTEY PRECAUTION IN PLACE. CALL LIGHT WITHIN REACH.
[2021-04-19 09:37] VITALS: BP 187/102
[2021-04-19 12:22] VITALS: BP 109/59
[2021-04-19 13:39] VITALS: BP 121/64
--- NOTE | 2021-04-19 14:16 | NUR ---
PT WATCHING TV. STATES PAIN IN LEGS. PAIN MEDICAITON GIVEN SEE EMAR. IV PATENT INFUSING IV ABX WITH NO COMPLICATION. STATES NO OTHER NEEDS AT THIS TIME. FALL/SAFTEY PRECAUTION IN PLACE. CALL LIGHT IS WITHIN REACH.
--- NOTE | 2021-04-19 16:53 | NUR ---
PT RESTING IN BED WATCHING TV AT THIS TIME. NO DISTRESS NOTED. FALL/SAFETY PRECAUTION IN PLACE. CALL LIGHT IS WITHIN REACH. TELE MONITOR IN PLACE
[2021-04-19 17:39] VITALS: BP 135/79
--- NOTE | 2021-04-19 21:34 | NUR ---
RESTING IN BED. VSS. RESPIRATIONS EVEN AND UNLABORED. CRACKLES TO BASES. A/OX4. BS ACTIVE. BLE EDEMA NOTED LEFT GREATER THAN RIGHT AT 3+PITTING, PULSES WDL. CAP REFILL LESS THAN 3 SEC. MEDICATED FOR PAIN PER MAR. BED LOW AND LOCKED CALL MEAD IN REACH SIDE RAILS UP.
--- NOTE | 2021-04-19 23:42 | NUR ---
VSS RESTING EYES CLOSED AT THIS TIME SAFETY PRECAUTIONS IN PLACE PER POLICY
[2021-04-20] VITALS: BP 139/84
[2021-04-20 02:45] VITALS: BP 144/88
--- NOTE | 2021-04-20 04:29 | NUR ---
NO EVENTS OVERNIGHT VSS
[2021-04-20 05:17] LABS: HEMATOCRIT 28.2 % (37.0-47.0); MEAN CELL VOLUME 95.9 fL CALC (80.0-100.0); MEAN CORPUSCULAR HGB 30.6 pG CALC (26.0-32.0); MEAN CORPUSCULAR HGB CONC 31.9 g/dL CAL (32.0-36.0); RED BLOOD COUNT 2.94 mill/uL (4.20-5.60); RED CELL DISTRI WIDTH 17.9 % (11.5-15.5)
[2021-04-20 05:37] LABS: ANION GAP 14 (6-22 (CALC)); BUN 17 mg/dL (7-17); BUN/CREATININE RATIO 24 (12-20 (CALC)); CARBON DIOXIDE 25 mmol/l (22-30); CHLORIDE 106 mmol/l (95-108); CREATININE 0.7 mg/dL (0.5-1.0); GFR > 60 ML/MIN (>=60 (CALC)); GFR FOR AFR.AMER. > 60 ML/MIN (>=60 (CALC)); MAGNESIUM 1.5 mg/dL (1.6-2.3); POTASSIUM 2.9 mmol/l (3.5-5.1); SODIUM 143 mmol/l (137-146)
[2021-04-20 07:25] VITALS: BP 135/89
[2021-04-20 08:25] VITALS: BP 135/89
[2021-04-20] MEDS ORDERED: LORTAB5 PO (09:50)
[2021-04-20] MEDS ORDERED: FLEXERIL5 M1 PO (09:50)
[2021-04-20] MEDS ORDERED: ZITHROMAX500 MG PO (09:53)
--- NOTE | 2021-04-20 10:28 | NUR ---
REPORT GOT FROM LODGING FACILITIES MANAGER NURSE. PATIENT IS AOX4, NO COMPLAINTS OR CONCERNS AT THIS TIME. STATES THAT SHE FEELS GOOD.
--- NOTE | 2021-04-20 11:46 | NUR ---
Discharge instructions given. Patient verbalizes understanding of same. Discharged in stable condition via Wheelchair to Home with relative. All belongings sent with pt.
--- NOTE | 2021-04-20 13:15 | NUR ---
Pt was seen just prior to d/c, stated she was waiting for her ride, and wanted to participate with therapist until she came. BP 145/90, 02sat 99%. Bed mobility and supine to sit was indep without use of bed rails. Pt ambulated in room with supervision only, light touch to objects in room. She has a walker at home for distance and w/c. Pt reported doing ex at home but did not have them in writting, written ex given, instructed in importance of gradual increase activity stressed. Time spent with pt 20 min A- [facility] home, home health P- Pt d/c today.
[2021-04-25] MEDS ORDERED: PREDNISONE10 MG PO (04:12)
[2021-04-25] MEDS ORDERED: ALPRAZOLAM0.25 MG PO (04:14)
[2021-04-25] MEDS ORDERED: PERCOCET 5/321 COMBO PO (04:21)
== END 2021-04-20 11:45 | disposition home or self-care (01) ==
LOC: ED 10:06 → ED-I 14:25 → ED 14:37 → MS2 14:38
PROVIDERS: ADMIT Hospitalist; ATTEND Hospitalist
DX: J18.9 Pneumonia, unspecified organism (principal); M79.672 Pain in left foot; E87.6 Hypokalemia; I10 Essential (primary) hypertension; E66.9 Obesity, unspecified; Z23 Encounter for immunization; Z68.43 Body mass index [BMI] 50.0-59.9, adult; Z86.718 Personal history of other venous thrombosis and embolism; Z79.01 Long term (current) use of anticoagulants; Z87.891 Personal history of nicotine dependence; Z20.822 Contact with and (suspected) exposure to COVID-19
CPT/HCPCS: G0378; J2060; Q9967

== ENCOUNTER 2022-04-12 11:10 | Emergency (ER) | payer OTHER ==
[~2022-04-12] VITALS: Ht 165.1 cm; Wt 117.0 kg
[~2022-04-12 11:10] MED LIST changes: +ALPRAZOLAM0.25 MG PO; +ELIQUIS5 MG PO; +FAMOTIDINE20 M1 PO; +FLEXERIL5 M1 PO; +FLUOXETINE10 M2 PO; +LORTAB5 PO; +METOPROL TAR25 MG PO; +PREDNISONE10 MG PO; +VIMPAT100 MG PO; +ZITHROMAX500 MG PO
[2022-04-12 11:53] VITALS: BP 134/98
[2022-04-12 12:00] VITALS: BP 132/87
[2022-04-12 12:15] VITALS: BP 132/78
[2022-04-12 13:30] LABS: URINE BILIRUBIN - DIPSTICK NEGATIVE (NEGATIVE); URINE BLOOD DIPSTICK TRACE-INTACT (NEGATIVE); URINE COLOR YELLOW; URINE GLUCOSE - DIPSTICK NEGATIVE (NEGATIVE); URINE KETONE NEGATIVE (NEGATIVE); URINE LEUK ESTERASE TRACE (NEGATIVE); URINE PH 5.5 (4.5-8.0); URINE PROTEIN - DIPSTICK TRACE mg/dL (NEG-TRACE); URINE SPECIFIC GRAVITY >=1.030; URINE UROBILINOGEN - DIPSTICK 0.2 E.U./dL (0.2)
[2022-04-12 13:33] LABS: BASO% 0.2 % (0-3); HEMATOCRIT 47.4 % (37.0-47.0); HEMOGLOBIN 16.2 g/dl (12.0-16.0); IMMATURE GRANULOCYTES 0.3 % (0.0-5.0); MEAN CELL VOLUME 88.8 fL CALC (80.0-100.0); MEAN CORPUSCULAR HGB 30.3 pG CALC (26.0-32.0); MEAN CORPUSCULAR HGB CONC 34.2 g/dL CAL (32.0-36.0); MONO% 4.2 % (2-13); NEUT# 4.8 thou/uL (2.00-7.15); NEUT% 53.3 % (42-76); RED BLOOD COUNT 5.34 mill/uL (4.20-5.60); RED CELL DISTRI WIDTH 11.7 % (11.5-15.5)
[2022-04-12 13:34] LABS: HCG SERUM/URINE (NEG/POS) NEGATIVE (NEGATIVE); URINE NITRITE - DIPSTICK POSITIVE (Negative)
[2022-04-12 13:41] LABS: ALBUMIN 4.7 g/dL (3.2-5.0); ALKALINE PHOSPHATASE 136 u/l (38-126); ANION GAP 15 (6-22 (CALC)); BILIRUBIN, TOTAL 0.5 mg/dL (0.02-1.3); BUN 16 mg/dL (7-17); BUN/CREATININE RATIO 24 (12-20 (CALC)); CARBON DIOXIDE 23 mmol/l (22-30); CHLORIDE 108 mmol/l (95-108); CREATININE 0.6 mg/dL (0.5-1.0); GFR FOR AFR.AMER. > 60 ML/MIN (>=60 (CALC)); GFR OTHER RACES > 60 ML/MIN (>=60 (CALC)); LIPASE 97 u/l (23-300); POTASSIUM 4.3 mmol/l (3.5-5.1); SGOT/AST 84 u/l (14-36); SODIUM 142 mmol/l (137-146); TOTAL PROTEIN 8.3 g/dL (6.3-8.2)
[2022-04-12 13:43] LABS: URINE EPITHELIAL CELLS FEW EPI/hpf (0-FEW)
[2022-04-12 13:44] LABS: URINE BACTERIA MANY hpf
[2022-04-12] MEDS ORDERED: ONDANSETRON4 MG PO (14:05)
[2022-04-12] MEDS ORDERED: MACROBID100 M1 PO (14:05)
[2022-04-12 14:20] VITALS: BP 132/78
== END 2022-04-12 14:45 | disposition home or self-care (01) ==
LOC: ED 11:10
PROVIDERS: Nurse Practitioner
DX: N39.0 Urinary tract infection, site not specified (principal); B96.20 Unspecified Escherichia coli [E. coli] as the cause of diseases classified elsewhere; R11.2 Nausea with vomiting, unspecified; I10 Essential (primary) hypertension; E66.01 Morbid (severe) obesity due to excess calories; Z86.16 Personal history of COVID-19; Z86.718 Personal history of other venous thrombosis and embolism; Z20.822 Contact with and (suspected) exposure to COVID-19

== ENCOUNTER 2022-11-07 09:44 | Emergency (ER) | payer SELFPAY ==
[~2022-11-07] VITALS: Ht 165.1 cm; Wt 122.2 kg
[~2022-11-07 09:44] MED LIST changes: +MACROBID100 M1 PO; +ONDANSETRON4 MG PO
[2022-11-07 09:57] VITALS: BP 145/83
[2022-11-07 10:01] VITALS: BP 127/71
[2022-11-07 10:15] VITALS: BP 143/86
[2022-11-07 10:28] LABS: URINE BILIRUBIN - DIPSTICK Negative (NEGATIVE); URINE BLOOD DIPSTICK Negative (NEGATIVE); URINE GLUCOSE - DIPSTICK Negative (NEGATIVE); URINE KETONE Negative (NEGATIVE); URINE LEUK ESTERASE Negative (NEGATIVE); URINE NITRITE - DIPSTICK Negative (Negative); URINE PROTEIN - DIPSTICK Negative (NEG-TRACE); URINE UROBILINOGEN - DIPSTICK 0.2 E.U./dL (0.2)
[2022-11-07 10:31] VITALS: BP 122/67
[2022-11-07 10:35] LABS: URINE COLOR Yellow
[2022-11-07 10:46] VITALS: BP 121/64
[2022-11-07 11:02] VITALS: BP 121/64
== END 2022-11-07 11:03 | disposition left against medical advice (07) | DRG 103 ==
LOC: ED 09:44
PROVIDERS: Family Medicine
DX: G43.909 Migraine, unspecified, not intractable, without status migrainosus (principal); I10 Essential (primary) hypertension; E66.01 Morbid (severe) obesity due to excess calories; Z86.16 Personal history of COVID-19; Z86.718 Personal history of other venous thrombosis and embolism; Z53.29 Procedure and treatment not carried out because of patient's decision for other reasons; Z20.822 Contact with and (suspected) exposure to COVID-19